=== PATIENT | male | born 1995 | race Caucasian/White ===

== ENCOUNTER 2017-01-14 20:07 | Emergency (ER) | payer SELFPAY ==
[~2017-01-14] VITALS: Ht 182.9 cm; Wt 80.0 kg
[2017-01-14 20:10] VITALS: BP 136/74; PULSE 114; RESP 16; TEMP 99.3; O2SAT 99
--- NOTE | 2017-01-14 20:34 | PD ---
Physical Exam Date Seen by Provider: Jan 14, 2017 Time Seen by Provider: 20:31 Narrative 21 y/o male with possible spider bite 5 days ago to left inner proximal forearm. No fever. Pain and swelling worsening. Denies IV drug use. No Hx. MRSA. Vital Signs reviewed. Patient is Stable and awaiting Bed Placement. Data Data Last Documented VS Vital Signs Date Time Temp Pulse Resp B/P (MAP) Pulse Ox O2 Delivery O2 Flow Rate FiO2 01/14/17 20:10 99.3 114 16 136/74 (94) 99 MDM Medical Record Reviewed: Yes Supervised Visit with ZAHEER: Yes Condition: Stable Eder Vargas Jan 14, 2017 20:34
[2017-01-14] MEDS ORDERED: BACT800T5 PO (22:11)
[2017-01-14] MEDS ORDERED: CEPH-460 PO (22:11)
--- NOTE | 2017-01-14 22:11 | PD ---
HPI Chief Complaint: Bite or Sting Time Seen by Provider: 22:09 Travel History International Travel<30 days: No Contact w/Intl Traveler<30days: No Traveled to known affect area: No History of Present Illness HPI 21-year-old male complains of pain in the left forearm. He believes about 5 days ago he was bit by a spider. He has been expressing a bloody discharge with firm pressure in the area. It is quite painful. He denies fever. He has no history of IV drug abuse. He has no history of MRSA. On the left forearm pain is constant and worse with palpation. There is a throbbing quality. The patient's right handed. PFSH Social History Tobacco Use: Yes Allergies-Medications (Allergen,Severity, Reaction): Coded Allergies: No Known Allergies (Verified Allergy, Unknown, 01/14/17) Reported Meds & Prescriptions Reported Meds & Active Scripts Active Keflex (Cephalexin) 500 Mg Capsule 500 Mg PO Q8H 10 Days Bactrim DS (Sulfamethoxazole-Trimethoprim) 800-160 Mg Tab 1 Tab PO BID Review of Systems Except as stated in HPI: all other systems reviewed are Neg Physical Exam Narrative GENERAL: Well-nourished well-developed 21-year-old male no acute distress SKIN: Warm and dry. About the left forearm along the dorsal aspect and ulnar aspect there is a focus of dried blood overlying a indurated tender erythematous and warm region of cellulitis extending from a few centimeters distal to the antecubital fossa to a few centimeters proximal to the DRUJ. There is no fluctuance. There is no circumferential cellulitic change. HEAD: Atraumatic. Normocephalic. EYES: Pupils equal and round. No scleral icterus. No injection or drainage. ENT: No nasal bleeding or discharge. Mucous membranes pink and moist. NECK: Trachea midline. No JVD. CARDIOVASCULAR: Heart rate approximately 110 or so. Regular rhythm. RESPIRATORY: No accessory muscle use. Clear to auscultation. Breath sounds equal bilaterally. GASTROINTESTINAL: Abdomen soft, non-tender, nondistended. Hepatic and splenic margins not palpable. MUSCULOSKELETAL: Extremities without clubbing, cyanosis, or edema. No obvious deformities. NEUROLOGICAL: Awake and alert. No obvious cranial nerve deficits. Motor grossly within normal limits. Five out of 5 muscle strength in the arms and legs. Normal speech. PSYCHIATRIC: Appropriate mood and affect; insight and judgment normal. Data Data Last Documented VS Vital Signs Date Time Temp Pulse Resp B/P (MAP) Pulse Ox O2 Delivery O2 Flow Rate FiO2 01/14/17 20:10 99.3 114 16 136/74 (94) 99 Vital signs reviewed Orders Orders Sulfamet-Trimeth Ds 800-160 Mg (Bactrim (01/14/17 22:15) Cephalexin (Keflex) (01/14/17 22:15) MDM Medical Decision Making Medical Screen Exam Complete: Yes Emergency Medical Condition: Yes Medical Record Reviewed: Yes Differential Diagnosis Necrotizing fasciitis, abscess, cellulitis, sepsis Narrative Course Patient has cellulitis of the left forearm. He is young and healthy. He has mild tachycardia consistent with infectious state however admission at this time is inappropriate for this patient. Return precautions discussed. Bactrim and Keflex for financial reasons will be prescribed. First dose given here. Patient's ready for discharge. Diagnosis Primary Impression: Cellulitis Qualified Codes: L03.114 - Cellulitis of left upper limb Referrals: Primary Care Physician Additional Instructions: You have a choice when it comes to health care, and we are glad that you chose [facility]. Hopefully, we have met your expectations on today's visit. You are welcome to return to [facility] at any time, as we are committed to meeting the health care needs of our community. Med/Other Pt SpecificInfo: Prescription(s) given Scripts Cephalexin (Keflex) 500 Mg Capsule 500 MG PO Q8H for Infection for 10 Days, CAP 0 Refills Prov: Andrae Lee MD 01/14/17 Sulfamethoxazole-Trimethoprim (Bactrim DS) 800-160 Mg Tab 1 TAB PO BID for Infection, #20 TAB 0 Refills Prov: Andrae Lee MD 01/14/17 Disposition: 01 DISCHARGE HOME Condition: Stable Andrae Lee MD Jan 14, 2017 22:11
[2017-01-14] MEDS ORDERED: SULFAMETHOXAZOLE-TRIMETHOPRIM DS 800-160 MG TAB PO ONE (22:15)
[2017-01-14] MEDS ORDERED: CEPHALEXIN MONOHYDRATE 500 MG CAP PO ONE (22:15)
== END 2017-01-14 22:57 | disposition home or self-care (01) ==
LOC: NEPD 20:07
DX: L03.114 Cellulitis of left upper limb (principal); R00.0 Tachycardia, unspecified; Z72.0 Tobacco use
CPT/HCPCS: 99284

== ENCOUNTER 2017-10-06 21:03 | Emergency (ER) | payer SELFPAY ==
[~2017-10-06] VITALS: Ht 182.9 cm; Wt 85.0 kg
[~2017-10-06 21:03] MED LIST: BACT800T5 PO; CEPH-460 PO
[2017-10-06 21:19] VITALS: BP 136/66; PULSE 87; RESP 18; TEMP 98.3; O2SAT 97
[2017-10-06 21:26] VITALS: BP 138/81; PULSE 82; RESP 20; O2SAT 100
--- NOTE | 2017-10-06 21:59 | PD ---
HPI Chief Complaint: Abdominal Pain Time Seen by Provider: 21:29 Travel History International Travel<30 days: No Contact w/Intl Traveler<30days: No Traveled to known affect area: No History of Present Illness HPI The patient is a 22 year old male who presents to the [facility] emergency department with a history of left-sided abdominal pain that he reports began 4 days ago. He reports that it was waxing and waning in severity, however it is never completely resolved. He reports that he has been taking Tylenol for the pain, and one time also took Rolaids. The patient reports that he has been having indigestion and a sensation of acid reflux. He reports that he had nausea and vomiting on the first day that this began. He reports having a bloated sensation that seems to be worse when he is working. 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 The patient reports that he has had black stools since yesterday. He reports that he normally moves his bowels 1-2 times per day. This has not changed in frequency. On further questioning, the patient reports that he did take Pepto-Bismol yesterday, however he cannot recall if the stool became black after taking the medication. He denies having any known recent fevers. He denies having any dysuria, hematuria, urinary urgency, or frequency. On review of systems otherwise, the patient denies having any recent cough or congestion, neck pain, chest pain, shortness of breath, or neurologic symptoms. PFSH Past Medical History Narrative Medical The patient's past medical history is reportedly none. Medical History: Denies Significant Hx Diminished Hearing: No Tetanus Vaccination: < 5 Years Influenza Vaccination: No Past Surgical History Narrative Surgical The patient's past surgical history is reportedly none. Surgical History: No Previous Surgery Social History Alcohol Use: Yes (1-2 beers per week) Tobacco Use: Yes (One half pack per day) Substance Use: No Allergies-Medications (Allergen,Severity, Reaction): Coded Allergies: No Known Allergies (Verified , 10/06/17) Reported Meds & Prescriptions Reported Meds & Active Scripts Active Review of Systems Except as stated in HPI: all other systems reviewed are Neg General / Constitutional: No: Fever Eyes: No: Visual changes HENT: No: Headaches Cardiovascular: No: Chest Pain or Discomfort Respiratory: No: Shortness of Breath Gastrointestinal: Positive: Nausea, Vomiting, Abdominal Pain, Changes in Bowel Habits (Black stool), Indigestion, Loss of Appetite, No: Diarrhea, Hematemesis, Hematochezia Genitourinary: No: Dysuria Musculoskeletal: No: Pain Skin: No Rash Neurologic: No: Weakness, Focal Abnormalities, Change in Mentation, Slurred Speech, Sensory Disturbance Psychiatric: No: Depression Endocrine: No: Polydipsia Hematologic/Lymphatic: No: Easy Bruising Physical Exam Narrative General: The patient is a well-developed well-nourished male in no acute distress. Head and Neck exam: Head is normocephalic atraumatic. Eyes: EOMI, pupils are equal round and reactive to light. Nose: Midline septum with pink mucous membranes Mouth: Dentition unremarkable. Moist mucus membranes. Posterior oropharynx is not erythematous. No tonsillar hypertrophy. Uvula midline. Airway patent. Neck: No palpable lymphadenopathy. No nuchal rigidity. No thyromegaly. Cardiovascular: Regular rate and rhythm without murmurs, gallops, or rubs. Lungs: Clear to auscultation bilaterally. No wheezes, rhonchi, or rales. Abdomen: Soft, without tenderness to palpation in all 4 quadrants of the abdomen. No guarding, rebound, or rigidity. Normal bowel sounds are audible. No tenderness on palpation of McBurney's point. Negative Iverson sign. Extremities: No clubbing, cyanosis, or edema. 2+ pulses in all 4 extremities. No calf tenderness on palpation. Back: No spinous process tenderness to palpation. No costovertebral angle tenderness to palpation. Neurologic Exam: Grossly nonfocal. Skin Exam: No rash noted. Intact skin that is warm and dry. Rectal exam: Patient refused to have a rectal exam Data Data Last Documented VS Vital Signs Date Time Temp Pulse Resp B/P (MAP) Pulse Ox O2 Delivery O2 Flow Rate FiO2 10/06/17 21:26 82 20 138/81 (100) 100 Room Air 10/06/17 21:19 98.3 MDM Medical Decision Making Medical Screen Exam Complete: Yes Emergency Medical Condition: Yes Medical Record Reviewed: Yes Differential Diagnosis Gastritis, versus hemorrhagic esophagitis, versus peptic ulcer disease, versus pancreatitis, versus diverticulitis, versus colitis Narrative Course During the course of the patient's emergency department visit, the patient's history, examination, and differential diagnosis were reviewed with the patient. The patient was placed on a monitoring and evaluation advisor with oximetry and frequent blood pressure monitoring. The patient was informed that IV access and blood work would be ordered as well as a CT scan of the abdomen and pelvis and a rectal examination would be done by me to further evaluate the current symptoms. The patient reports that he is afraid of needles. I explained that we regularly place IV access and patient's and would help him through the process. Patient then reports that he has been away from his dog for 12 hours and needs to go feed his dog. The patient reports that he would like to leave the ER. He reports that he will come back tomorrow if the symptoms continue. As the patient could have a GI bleed and his symptoms could be serious, I explained to him that he would need to leave AGAINST MEDICAL ADVICE as we do not know exactly what is going on to give him a diagnosis at this point. AMA: The risks of leaving against medical advice without further evaluation treatment were discussed with the patient. These risks include cardiac dysfunction from cardiac arrhythmia possibly due to electrolyte derangement, versus hemorrhagic shock from a GI bleed, versus . The patient indicated understanding of these risks and appeared to have the capacity to make this decision. Diagnosis Primary Impression: Abdominal pain Qualified Codes: R10.12 - Left upper quadrant pain Referrals: [facility] 2 days Patient Instructions: Abdominal Pain (ED), General Instructions Additional Instructions: The patient was instructed to return back to the emergency department if he continues to have symptoms. The patient is instructed that for reflux symptoms he could try an [id number] acid senior accounts payable clerk such as Prilosec. Disposition: 07 AGAINST MEDICAL ADVICE Condition: Spring Peace MD October 06, 2017 21:59
== END 2017-10-06 22:08 | disposition left against medical advice (07) ==
LOC: NEPE 21:03
DX: R10.12 Left upper quadrant pain (principal); F17.210 Nicotine dependence, cigarettes, uncomplicated; Z53.29 Procedure and treatment not carried out because of patient's decision for other reasons
CPT/HCPCS: 99281